=== PATIENT | female | born 1970 | race Two or more races ===

== ENCOUNTER 2017-09-23 11:29 | Emergency (ER) | payer SELFPAY ==
[~2017-09-23] VITALS: Ht 162.6 cm; Wt 62.6 kg
--- NOTE | 2017-09-23 11:37 | NUR ---
C/O LEFT ANKLE PAIN, RT KNEE AVULSION S/P FALL WHILE HIKING AFTER SHE TWISTED HER LEFT FOOT. DENIES HITTING HER HEAD. NO KO. IN STABLE CONDITION
[2017-09-23] MEDS ORDERED: IBUPROFEN 600 MG TABLET PO ONE ×2 (12:29→12:30)
[2017-09-23] MEDS ORDERED: HYDROCODONE/APAP 10/325MG 1 EA TABLET ONE (12:29)
[2017-09-23] MEDS ORDERED: LIDOCAINE SOLN 4% 50 ML BOTTLE TP ONE (12:30)
[2017-09-23] MEDS ORDERED: HYDROCODONE/APAP 10/325MG 1 EA TABLET PO ONE (12:30)
[2017-09-23] MEDS ORDERED: LIDOCAINE VISCOUS 2% UD 15 ML UDC ONE (12:47)
--- NOTE | 2017-09-23 12:52 | NUR ---
NICOLE AT BS.
[2017-09-23] MEDS ORDERED: TDAP [DIPH/PERTUSSIS/TET] 0.5 ML VIAL IM ONE ×2 (12:58→13:00)
--- NOTE | 2017-09-23 13:40 | NUR ---
Patient discharged to home in stable condition. Written and verbal after care instructions given. Patient verbalizes understanding of instruction.
--- NOTE | 2017-09-23 13:40 | NUR ---
LINNETTE PIZANO AT FOR WOUND CARE.
[2017-09-23 15:20] VITALS: BP 108/71
== END 2017-09-23 15:20 | disposition home or self-care (01) ==
LOC: ER 11:30
DX: S82.65XA Nondisplaced fracture of lateral malleolus of left fibula, initial encounter for closed fracture (principal); S81.011A Laceration without foreign body, right knee, initial encounter; E78.00 Pure hypercholesterolemia, unspecified; F41.9 Anxiety disorder, unspecified; F32.9 Major depressive disorder, single episode, unspecified; W01.0XXA Fall on same level from slipping, tripping and stumbling without subsequent striking against object, initial encounter; Y93.01 Activity, walking, marching and hiking; Y92.89 Other specified places as the place of occurrence of the external cause; Y99.8 Other external cause status
CPT/HCPCS: 73564-TC; 73610-TC; 90715; A4606; A6402; A6403; Z7610